=== PATIENT | male | born 1945 | race Caucasian/White ===

== ENCOUNTER → 2017-09-22 08:46 | Outpatient (CLI) | payer OTHER, SELFPAY ==
--- NOTE | 2017-09-22 | DI.CT.S_ITS ---
PROCEDURE: CT ABDOMEN WO/W CON INDICATIONS: ADRENAL PROTOCOL FOR DISORDER OF GLAND TECHNIQUE: Noncontrast 3 mm thick sections acquired from the diaphragms to the iliac crests. After the administration of intravenous contrast, 3 mm thick venous-phase and 10-minute delayed images acquired from the diaphragms to the iliac crests. For radiation dose reduction, the following was used: automated exposure control, adjustment of mA and/or kV according to patient size. COMPARISON: [facility], CT, ABDOMEN/PELVIS WITH CONTRAST, 08/29/2008, 13:44. [facility], MR, L-SPINE W&WO CONTRAST, 05/12/2014, 10:29. [facility], CT, IVP (ABD & PEL WWO CONTRAST), 03/20/2017, 9:16. FINDINGS: Image quality: There is streak artifact from the patient's thoracolumbar fixation hardware. Lung bases: Lung bases are clear. Heart size is normal. Adrenal glands: There is a left adrenal nodule again seen, which measures 2.4 x 2 cm in greatest axial dimension. On precontrast imaging, this measures 7 Hounsfield units. On venous phase imaging, this measures 42 Hounsfield units. On the delayed imaging, the internal density is also 42 Hounsfield units. No right adrenal nodules are seen. Solid organs: Liver is normal in size and enhancement. Subcentimeter presumed cysts are seen within the liver. Gallbladder demonstrates at least one gallstone. Biliary system is non dilated. Pancreas enhances normally. Spleen is normal in size and enhancement. Kidneys are normal in size and enhancement. No hydronephrosis. Bilateral nonobstructing kidney stones are seen. The largest stone on the right measures 6 mm and the largest stone on the left measures 3 mm. There is a nonenhancing water density cyst seen at the posterior aspect of the right kidney inferiorly that measures 3 cm. Peritoneum and bowel: Unenhanced bowel loops are normal in caliber and wall thickness. No free fluid or air. Nodes and vessels: No retroperitoneal or mesenteric adenopathy by size criteria. However, borderline prominent retroperitoneal lymph nodes can be seen. Aorta and inferior vena cava are normal in size. Miscellaneous: No ventral hernias. Bones: No suspicious bony lesions. There is a mild chronic appearing anterior wedge deformity of L4, with 25% loss of height anteriorly. No acute vertebral body compression fractures. S-shaped scoliotic curvature is seen. Age-appropriate bony degenerative changes are seen. IMPRESSION: There is a 2.4 cm left adrenal nodule seen, which is attributed to benign, lipid rich adrenal adenoma based upon its precontrast density. (However, no significant washout of contrast from this lesion is observed. Density measurements are somewhat limited, secondary to streak artifact from adjacent metallic spinal fixation hardware.) No further evaluation is recommended. Incidental note is made of: At least one gallstone Subcentimeter presumed liver cysts Thoracolumbar spine fixation hardware 3 cm simple right renal cyst Nonobstructing kidney stones Chronic L4 anterior wedge deformity Dictated by: Chente Mcdermott M.D. on 09/22/2017 at 8:48 Approved by: Chente Mcdermott M.D. on 09/22/2017 at 8:59
== END ==
PROVIDERS: Family Provider Family Medicine; PCP Family Medicine; Visit Provider Internal Medicine Endocrinology, Diabetes & Metabolism
DX: E27.8 Other specified disorders of adrenal gland (principal); K80.20 Calculus of gallbladder without cholecystitis without obstruction; N28.1 Cyst of kidney, acquired; N20.0 Calculus of kidney
CPT/HCPCS: 74170; Q9967

== ENCOUNTER → 2017-11-30 14:26 | Outpatient (CLI) | payer OTHER, SELFPAY ==
--- NOTE | 2017-11-30 | DI.RAD.S_ITS ---
PROCEDURE: XR ABDOMEN 1V INDICATIONS: KIDNEY STONE TECHNIQUE: One view of the abdomen acquired. COMPARISON: [facility], CT, CT ABDOMEN WO/W CON, 09/22/2017, 8:50. FINDINGS: Surgical changes and devices: None. Bowel: Bowel gas pattern is normal. Large amount of stool in colon. Soft tissues: Bilateral renal calculi seen on the comparison CT are not well-seen on this KUB. Renal contours are obscured by overlying stool in colon. Visualized solid organ contours appear normal in size. Calcific densities in pelvis are consistent with pelvic phleboliths. Bones: No suspicious bony lesions. Postsurgical changes with spinal fusion at T12-L2. IMPRESSION: 1. Renal contours are obscured by overlying stool in colon. Renal stones seen on CT are not well-seen. 2. Large amount of stool in colon. Dictated by: Dejuan Harrison M.D. on 11/30/2017 at 15:44 Approved by: Dejuan Harrison M.D. on 11/30/2017 at 15:47
== END ==
PROVIDERS: Visit Provider Urology
DX: N20.0 Calculus of kidney (principal)
CPT/HCPCS: 74018

== ENCOUNTER → 2018-05-04 07:58 | Outpatient (CLI) | payer OTHER, SELFPAY ==
[2018-05-04 08:56] LABS: Add Manual Diff / Slide Review NO; Basophils Percent Auto 0.7 % (0-2); Eosinophils Percent Auto 6.7 % (2-4); Hematocrit 42.7 % (41-53); Hemoglobin 14.6 g/dL (13.5-17.5); Lymphocytes Percent Auto 33.2 % (25-40); Mean Corpuscular HGB Conc 34.3 % (30-36); Mean Corpuscular Hemoglobin 32.7 PG (26-34); Mean Corpuscular Volume 95.3 fL (80-100); Monocytes Percent Auto 14.5 % (3-14); Neutrophils Absolute Auto 1300 /uL (1500-7000); Neutrophils Percent Auto 44.9 % (50-75); Platelet Count 157 X10^3/uL (150-400); Red Blood Cell Count 4.48 X10^6/uL (4.5-5.9); Red Cell Distribution Width 15.3 % (11.6-14.8); White Blood Cell Count 2.8 X10^3/uL (4.5-11.0)
[2018-05-04 09:25] LABS: Alanine Aminotransferase 29 IU/L (21-72); Albumin 4.4 g/dL (3.5-5.0); Albumin Globulin Ratio 1.6 (1.0-2.8); Alkaline Phosphatase 44 U/L (38-126); Aspartate Aminotransferase 32 IU/L (17-59); Bilirubin Total 0.7 mg/dL (0.2-1.3); Blood Urea Nitrogen 22 mg/dL (9-20); Calcium 9.6 mg/dL (8.4-10.2); Carbon Dioxide 27 mmol/L (22-32); Chloride 104 mmol/L (98-107); Cholesterol 173 mg/dL (140-199); Estimated Glomerular Filt Rate > 60.0 mL/min (>60); Globulin 2.7 g/dL (1.7-4.1); Glucose 93 mg/dL (80-110); HDL Cholesterol 46 mg/dL (40-60); HEMOLYSIS < 15 (0-50); LDL Cholesterol Calculated 111 mg/dL (<100); Potassium 4.5 mmol/L (3.4-5.1); Sodium 143 mmol/L (137-145); Total Protein 7.1 g/dL (6.3-8.2); Triglycerides 80 mg/dL (35-150)
[2018-05-04 09:40] LABS: Vitamin D 25 Hydroxy (D3) 62.4 ng/mL (30.0-100.0)
[2018-05-04 09:53] LABS: Prostate Specific Antigen Scrn 6.07 ng/mL (0.1-4.0)
== END ==
PROVIDERS: PCP Student in an Organized Health Care Education/Training Program; Visit Provider Student in an Organized Health Care Education/Training Program
DX: D69.6 Thrombocytopenia, unspecified (principal); E55.9 Vitamin D deficiency, unspecified; Z13.220 Encounter for screening for lipoid disorders; N40.0 Benign prostatic hyperplasia without lower urinary tract symptoms; M54.17 Radiculopathy, lumbosacral region; Z12.5 Encounter for screening for malignant neoplasm of prostate
CPT/HCPCS: 36415; 80053; 80061; 82306; 85025; G0103

== ENCOUNTER 2018-06-06 15:29 | Outpatient (CLI) | payer OTHER, SELFPAY ==
[2018-06-06] VITALS (8 sets, daily range): BP systolic 113–161; BP diastolic 72–97; PULSE 48–72; RESP 16; TEMP 35.9; O2SAT 98–100
--- NOTE | 2018-06-06 15:31 | DI.RAD.S_ITS ---
PROCEDURE: PAIN L/S TRANSFORAMINAL INJECT INDICATIONS: SPINAL STENOSIS FINDINGS: Fluoroscopic spot filming was performed to verify placement of spinal needles at the L4-L5 level(s), as labeled on the films. Appropriate location(s) of the needle tip(s) was confirmed by injection of iodinated contrast. L5 compression fracture incidentally noted Dictated by: Ramakrishna Duarte M.D. on 06/06/2018 at 16:57 Approved by: Ramakrishna Duarte M.D. on 06/06/2018 at 16:58
[2018-06-06] MEDS: MIDAZOLAM 5 MG/5 ML VIAL IV (16:05)
[2018-06-06] MEDS: IOPAMIDOL 15 ML VIAL 3 ML INJ (16:09)
[2018-06-06] MEDS: BUPIVACAINE 0.25% (PF) VIAL 2 ML INJ (16:09)
[2018-06-06] MEDS: methylPREDNISolone acetate 80 MG/ML VIAL INJ (16:09)
[2018-06-06] MEDS: DEXAMETHASONE 10 MG/ML VIAL 20 MG INJ (16:09)
--- NOTE | 2018-06-06 16:13 | PC.NURSE ---
assisting pt off table and transporting to post proc area by wc in stable condition
--- NOTE | 2018-06-06 16:24 | P.PCN_ITS ---
Procedures Date/Time Date of procedure: 06/06/18 Time of procedure: 16:23 General Procedure description: PREOP DIAGNOSIS 1. FORMAINAL STENOSIS WITH LE SYMPTOMS POST OP DIAGNOSIS 1. FORMAINAL STENOSIS WITH LE SYMPTOMS PROCEDURES 1. FLUOROSCOPICALLY GUIDED CONTRAST CONTROLLED TRANSFORAMINAL EPIDURAL STEROID INJECTION - RIGHT L4/5 TFESI PHYSICIAN: Harrison Nieves DO INDICATIONS: Germain is referred by Dr. Carrillo for treatment of Foraminal Stenosis with Right LE Symptoms FINDINGS Foraminal Nerve Root Compression secondary to disc disease and facet hypertrophy DESCRIPTION OF PROCEDURE: Following denial of allergy and review of potential side effects and complications, including, but not necessarily limited to, infection, allergic reaction, local tissue breakdown, stroke, temporary or permanent nerve injury, paralysis, and possible , the patient indicated that the patient understood and agreed to proceed. An informed consent document was signed by the patient, witnessed by a nurse, and placed in the patient's chart. Additionally, other treatment options including medications, modalities, and physical therapy were reviewed with the patient. After review of previous anaesthesic history and IV conscious sedation the patient was deemed safe to proceed with todays procedure with IV conscious sedation as ASA class II designation. Safety time-out was performed to confirm patient ID, procedure to be performed and site of procedure. IV sedation was accomplished with a combination of 3mg of Versed was administered by the RN after DO order, titrated to patient comfort during the course of the procedure while the patient remained responsive to all verbal commands In the prone position following sterile prep and drape of the lumbar region, the Right L4/5 posterior neuroforamen was identified fluoroscopically. The skin was anesthetized via a 25-gauge 1.5-inch needle with 1% lidocaine solution. At this point, a 25-gauge 3.5-inch spinal needle was atraumatically introduced and advanced under fluoroscopic guidance through the posterior Right L4/5 neuroforamen to approximately the anterior aspect of the canal. Depth was confirmed on lateral view. Following negative aspiration, injection of approximately 1.5 cc of Isovue 200 under live fluoroscopy in the AP view confirmed excellent flow along the nerve root, into the epidural space without vascular or intrathecal uptake observed Radiological data, including multiple fluoroscopic views of the lumbosacral spine, reveal a spinal needle at the right L4/5 posterior neuroforamen. Subsequent views show flow of contrast material flowing superiorly and inferiorly along the nerve root confirming epidural flow. Subsequently, a test dose of 1.5 cc of 1% lidocaine solution was administered and patient was observed for two minutes for signs or symptoms of complications , including abdominal pain, shortness of breath, bilateral upper or lower extremity weakness, nausea and vomiting, prior to steroid injection. At this point, a total of 3 cc or 20 mg of dexamethasone and 80mg Depo Medrol was injected without incident. The procedure tolerated the procedure well without signs or symptoms of complications prior to transfer to the recovery area continued monitoring without incident.The patient was then transferred to the recovery area where they were observed for an appropriate time after the injection. The patient reported a VAS score of 7 prior to the procedure and a post- procedure VAS of 0. Total Fluoroscopy Time: 20.9 seconds Total Conscious Sedation Time: 24min POST OP INSTRUCTIONS The patient was provided a Pain Log to continue to record their response to the target-specific procedure prior to follow-up visit with their referring physician. Additionally, specific post-injection care instructions and a contact number to our office were provided if concerns arise regarding possible complications associated with the procedure are suspected. Harrison Nieves DO Complications: none
--- NOTE | 2018-06-06 16:32 | PC.NURSE ---
Pt finished procedure and returned via w/c unable to move right leg. Able to transfer to w/c with 2 person assist. Resumed monitoring from Liz IZQUIERDO.
--- NOTE | 2018-06-06 16:44 | PC.NURSE ---
pt ready to go home except his right leg still hasn't recovered yet. We'll wait a little longer.
== END 2018-06-06 17:10 ==
PROVIDERS: PCP Student in an Organized Health Care Education/Training Program; Visit Provider Physical Medicine & Rehabilitation
DX: M48.061 Spinal stenosis, lumbar region without neurogenic claudication (principal); M51.16 Intervertebral disc disorders with radiculopathy, lumbar region; M48.07 Spinal stenosis, lumbosacral region; M99.83 Other biomechanical lesions of lumbar region
CPT/HCPCS: 64483; 99152; J1040; J1100; J2250

== ENCOUNTER → 2018-07-05 13:02 | Outpatient (CLI) | payer OTHER, SELFPAY ==
--- NOTE | 2018-07-05 | DI.MRI.S_ITS ---
PROCEDURE: MR LUMBAR SPINE WO CON INDICATIONS: poliomyelitis CALCULUS OF KIDNEY TECHNIQUE: Noncontrast sagittal T1 spin echo and T2 fast echo, sagittal STIR, axial T1 and T2 fast spin echo through the lumbar spine. In cases with scoliosis, additional coronal T2 fast spin echo may be performed. COMPARISON: [facility], CT, CT ABDOMEN WO/W CON, 09/22/2017, 8:50. [facility], MR, L-SPINE W&WO CONTRAST, 05/12/2014, 10:29. FINDINGS: Image quality: Excellent. Alignment and Curvature: There is moderate levoscoliosis. normal bony alignment. There is posterior fusion at T12-L2. Bone Marrow: There are chronic compression fractures, moderate at L5 (~50% loss of vertebral body height) and mild at L4 (~20% loss of vertebral body height). No acute vertebral body compression fractures. Spinal Cord: Conus medullaris terminates at the L1 level. Visualized cord demonstrates normal signal and size. Paraspinous Soft Tissues: No paravertebral masses. There is a 3 cm cyst in the right kidney. L1-L2: Surgically fused. No central canal stenosis or foraminal stenosis. L2-L3: Preserved disc height. Mild disc desiccation. There is mild posterior disc bulge. Mild bilateral facet arthropathy and hypertrophy of ligamentum flavum. The central canal is mildly narrowed. Moderate left and mild right foraminal stenosis. No significant change from the last exam. L3-L4: Tnyz-ls-[id number] loss of disc height and disc desiccation. There is diffuse posterior disc bulge and disc osteophyte complex. Moderate bilateral facet arthropathy and hypertrophy of ligamentum flavum. The central canal is mildly narrowed. Moderate left and mild right foraminal stenosis. No significant change from the last exam. L4-L5: Gjcb-su-zbcrzxse loss of disc height and disc desiccation. There is diffuse posterior disc bulge and disc osteophyte complex. Moderate right and mild left facet arthropathy. The central canal is mildly narrowed. Severe right and moderate left foraminal stenosis. No significant change from the last exam. L5-S1: Preserved disc height and mild disc desiccation. There is mild posterior disc bulge and disc osteophyte complex. Mild bilateral facet arthropathy. The central canal is patent. Moderate right and mild left foraminal stenosis. No significant change from the last exam. There is a 1.5 cm Tarlov cyst in sacrum just above S2-S3. IMPRESSION: 1. Multilevel degenerative disc disease and facet arthropathy as described. 2. Mild central canal stenosis at L2-L3, L3-L4 and L4-L5. 3. Multilevel foraminal stenosis as described. 4. Chronic compression fractures, moderate at L5 and mild at L4. 5. Postsurgical changes with spinal fusion at T12-L2. 6. Scoliosis. 7. 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 Dictated by: Dejuan Harrison M.D. on 07/05/2018 at 16:06 Approved by: Dejuan Harrison M.D. on 07/05/2018 at 16:37
--- NOTE | 2018-07-05 12:35 | DI.CT.S_ITS ---
PROCEDURE: CT KIDNEY URETER BLADDER (KUB) INDICATIONS: adernal nodule, hematuria, nephrolithiasis TECHNIQUE: Noncontrast 5 mm thick sections acquired from the diaphragms to the symphysis. 5 mm thick coronal and sagittal reformats were then performed. For radiation dose reduction, the following was used: automated exposure control, adjustment of mA and/or kV according to patient size. COMPARISON: [facility], CT, CT ABDOMEN WO/W CON, 09/22/2017, 8:50. FINDINGS: Image quality: Excellent. Lung bases: Lung bases are clear. Heart size is normal. Urinary system: Solitary left renal calculus measuring 2 mm in the inferior pole. There are a pair of right renal calculi measuring 4 mm also in the inferior pole. Simple appearing right renal cysts. No hydronephrosis. The ureters appear nondilated. There is chronic perinephric stranding, with unchanged appearance. Mild circumferential smooth bladder wall thickening. There is enlargement of the prostate. No bladder calculus seen. Bilateral pelvic phleboliths noted Other solid organs: Nonspecific subcentimeter hypodensity in the dome of the liver, too small to characterize however unchanged.. Gallbladder contains grossly unchanged appearance of at least one gallstone. There may also be gallbladder sludge. This could be further characterized with dedicated ultrasound as clinically warranted. No definite interval change since 09/22/17. Pancreas is normal in contours. Spleen is normal in size. Left adrenal nodule again noted measuring 2.0 cm and attenuation of 8 Hounsfield units suggestive of adenoma. As Peritoneum and bowel: Unenhanced bowel loops demonstrate normal wall thickness and caliber. No free fluid or air. The appendix is within normal limits Rectum is grossly unremarkable Nodes and vessels: No retroperitoneal or mesenteric adenopathy by size criteria. Aorta and inferior vena cava are normal in caliber. Abdominal wall: No ventral hernias. Pelvis: No free pelvic fluid. No inguinal hernias or adenopathy. Bones: No suspicious bony lesions. Lumbar spinal instrumentation and diffuse spondylosis. L5 compression fracture, as before. Age indeterminate anterior wedging of lower thoracic vertebral bodies. IMPRESSION: Overall, grossly unchanged examination since 09/22/17. Presumed left adrenal adenoma. Stable appearance. Cholelithiasis and possibly gallbladder sludge. This could be further characterized with ultrasound as clinically necessary, no interval change. Nonobstructive bilateral nephrolithiasis. Mild circumferential bladder wall thickening, technically age indeterminate. Recommend correlation with urinalysis. Enlarged prostate. Dictated by: Ramakrishna Duarte M.D. on 07/05/2018 at 16:00 Approved by: Ramakrishna Duarte M.D. on 07/05/2018 at 16:42
== END ==
PROVIDERS: PCP Student in an Organized Health Care Education/Training Program; Referring Provider Physical Medicine & Rehabilitation; Visit Provider Student in an Organized Health Care Education/Training Program
DX: E27.9 Disorder of adrenal gland, unspecified (principal); N20.0 Calculus of kidney; R31.9 Hematuria, unspecified; N40.0 Benign prostatic hyperplasia without lower urinary tract symptoms; M51.36 Other intervertebral disc degeneration, lumbar region; M51.37 Other intervertebral disc degeneration, lumbosacral region; M48.061 Spinal stenosis, lumbar region without neurogenic claudication; M48.07 Spinal stenosis, lumbosacral region; M47.816 Spondylosis without myelopathy or radiculopathy, lumbar region; M47.817 Spondylosis without myelopathy or radiculopathy, lumbosacral region; M84.48XS Pathological fracture, other site, sequela; M41.9 Scoliosis, unspecified; M85.68 Other cyst of bone, other site; Z98.1 Arthrodesis status
CPT/HCPCS: 72148; 74176

== ENCOUNTER → 2019-12-10 09:03 | Outpatient (CLI) | payer MEDICARE, SELFPAY ==
[2019-12-10 09:43] LABS: BUN Creatinine Ratio 27.7 (6-22); Blood Urea Nitrogen 31 mg/dL (9-20); Estimated Glomerular Filt Rate > 60.0 mL/min (>60)
--- NOTE | 2019-12-10 09:59 | DI.CT.S_ITS ---
PROCEDURE: CT ABDOMEN WO/W CON INDICATIONS: Other specified disorders of adrenal gland TECHNIQUE: Noncontrast 3 mm thick sections acquired from the diaphragms to the iliac crests. After the administration of intravenous contrast, 3 mm thick venous-phase and 15-minute delayed images acquired from the diaphragms to the iliac crests. For radiation dose reduction, the following was used: automated exposure control, adjustment of mA and/or kV according to patient size. COMPARISON: [facility], CT, IVP (ABD & PEL WWO CONTRAST), 03/20/2017, 9:16. [facility], CT, CT ABDOMEN WO/W CON, 09/22/2017, 8:50. FINDINGS: Image quality: Excellent. Lung bases: Lung bases are clear. Heart size is normal. Adrenal glands: There is a 2.2 x 2.5 cm left adrenal mass which demonstrates CT density 4.9 HU on precontrast images. Compared to the last exam on 09/22/2017, there is no change in size. The mass has absolute washout of 30.4 % and relative washout of 25.7%. Solid organs: Small low-density nodules in the upper are most likely hepatic cysts. Liver is normal in size and enhancement. Gallbladder contains gallstones. Biliary system is non dilated. Pancreas enhances normally. Spleen is normal in size and enhancement. There are nonobstructing renal stones bilaterally. No hydronephrosis. Kidneys are normal in size and enhancement. A 3 cm simple appearing cyst is seen in the inferior pole of the right kidney. Peritoneum and bowel: Unenhanced bowel loops are normal in caliber and wall thickness. No free fluid or air. Nodes and vessels: No retroperitoneal or mesenteric adenopathy by size criteria. Aorta and inferior vena cava are normal in size. Miscellaneous: No ventral hernias. Bones: Postsurgical changes raise discectomy and posterior fusion in lumbar spine. No suspicious bony lesions. No vertebral body compression fractures. IMPRESSION: 1. A 2.2 x 2.5 cm nodule is again identified in the left adrenal. The nodule has precontrast CT density less than 10 HU, compatible with adrenal adenoma. It appears unchanged in size compared to the last CT on 09/22/2017. 2. Cholelithiasis. 3. Bilateral nonobstructing renal calculi. 4. Tiny hepatic hypodensities are most likely small hepatic cysts. 5. A 3 cm simple appearing right renal cyst. Dictated by: Dejuan Harrison M.D. on 12/10/2019 at 13:40 Approved by: Dejuan Harrison M.D. on 12/10/2019 at 18:25
== END ==
PROVIDERS: PCP Student in an Organized Health Care Education/Training Program; Referring Provider Student in an Organized Health Care Education/Training Program; Visit Provider Student in an Organized Health Care Education/Training Program
DX: E27.8 Other specified disorders of adrenal gland (principal); N40.0 Benign prostatic hyperplasia without lower urinary tract symptoms; R97.20 Elevated prostate specific antigen [PSA]; K80.20 Calculus of gallbladder without cholecystitis without obstruction; N20.0 Calculus of kidney; N28.1 Cyst of kidney, acquired
CPT/HCPCS: 36415; 74170; 82565; 84520; Q9967

== ENCOUNTER → 2020-04-10 13:21 | Outpatient (CLI) | payer MEDICARE, SELFPAY ==
[2020-04-10 15:09] LABS: Prostate Specific Antigen 4.98 ng/mL (0.10-4.00)
== END ==
PROVIDERS: PCP Student in an Organized Health Care Education/Training Program; Referring Provider Student in an Organized Health Care Education/Training Program; Visit Provider Student in an Organized Health Care Education/Training Program
DX: R97.20 Elevated prostate specific antigen [PSA] (principal); N40.1 Benign prostatic hyperplasia with lower urinary tract symptoms
CPT/HCPCS: 36415; 84153

== ENCOUNTER → 2020-06-05 09:56 | Outpatient (CLI) | payer MEDICARE, SELFPAY ==
[2020-06-05] MEDS: COVID-19 VACC(MODERNA-1)/PF 100 MCG/0.5 ML VIAL IM (09:59)
== END ==
PROVIDERS: PCP Student in an Organized Health Care Education/Training Program; Visit Provider Internal Medicine
DX: Z23 Encounter for immunization (principal)
CPT/HCPCS: 0011A; 91301

== ENCOUNTER → 2020-07-03 10:54 | Outpatient (CLI) | payer MEDICARE, SELFPAY ==
[2020-07-03] MEDS: COVID-19 VACC #2, MRNA(MOD) 100 MCG/0.5 ML VIAL IM (11:00)
== END ==
PROVIDERS: PCP Student in an Organized Health Care Education/Training Program; Visit Provider Internal Medicine
DX: Z23 Encounter for immunization (principal)
CPT/HCPCS: 0012A; 91301

== ENCOUNTER → 2020-09-03 15:53 | Outpatient (CLI) | payer MEDICARE, SELFPAY ==
[2020-09-03 16:24] LABS: Add Manual Diff / Slide Review NO; Basophils Absolute Auto 0 /uL (0-100); Basophils Percent Auto 0.5 % (0-2); Eosinophils Absolute Auto 200 /uL (0-450); Eosinophils Percent Auto 3.6 % (2-4); Hematocrit 38.8 % (41-53); Lymphocytes Absolute Auto 1100 /uL (1100-4500); Lymphocytes Percent Auto 22.1 % (25-40); Mean Corpuscular HGB Conc 33.4 % (30-36); Mean Corpuscular Hemoglobin 31.2 PG (26-34); Mean Corpuscular Volume 93.3 fL (80-100); Monocytes Absolute Auto 500 /uL (0-900); Monocytes Percent Auto 10.6 % (3-14); Neutrophils Absolute Auto 3000 /uL (1500-7000); Neutrophils Percent Auto 63.2 % (50-75); Platelet Count 174 X10^3/uL (150-400); Red Blood Cell Count 4.16 X10^6/uL (4.5-5.9); Red Cell Distribution Width 15.8 % (11.6-14.8); White Blood Cell Count 4.8 X10^3/uL (4.5-11.0)
[2020-09-03 16:39] LABS: BUN Creatinine Ratio 33.7 (6-22); Blood Urea Nitrogen 32 mg/dL (9-20); Calcium 9.6 mg/dL (8.4-10.2); Carbon Dioxide 25 mmol/L (22-32); Chloride 105 mmol/L (98-107); Estimated Glomerular Filt Rate > 60.0 mL/min (>60); Glucose 78 mg/dL (80-110); HEMOLYSIS < 15 (0-50); Potassium 4.6 mmol/L (3.4-5.1); Sodium 136 mmol/L (137-145)
[2020-09-03 17:07] LABS: Prostate Specific Antigen 4.77 ng/mL (0.10-4.00)
== END ==
PROVIDERS: PCP Student in an Organized Health Care Education/Training Program; Referring Provider Student in an Organized Health Care Education/Training Program; Visit Provider Student in an Organized Health Care Education/Training Program
DX: Z87.438 Personal history of other diseases of male genital organs (principal); D69.6 Thrombocytopenia, unspecified; Z79.1 Long term (current) use of non-steroidal anti-inflammatories (NSAID)
CPT/HCPCS: 36415; 80048; 84153; 85025

== ENCOUNTER → 2021-08-30 11:11 | Outpatient (CLI) | payer MEDICARE, SELFPAY ==
[2021-08-30 13:01] LABS: BUN Creatinine Ratio 22.7 (6-22); Blood Urea Nitrogen 27 mg/dL (9-20); Calcium 9.4 mg/dL (8.4-10.2); Carbon Dioxide 28 mmol/L (22-32); Chloride 105 mmol/L (98-107); Estimated Glomerular Filt Rate 59.8 mL/min (>60); Glucose 89 mg/dL (80-110); HEMOLYSIS < 15 (0-50); Sodium 140 mmol/L (137-145)
[2021-08-30 13:30] LABS: Prostate Specific Antigen Scrn 5.93 ng/mL (0.1-4.0)
== END ==
PROVIDERS: PCP Student in an Organized Health Care Education/Training Program; Referring Provider Student in an Organized Health Care Education/Training Program; Visit Provider Student in an Organized Health Care Education/Training Program
DX: Z12.5 Encounter for screening for malignant neoplasm of prostate (principal); R97.20 Elevated prostate specific antigen [PSA]; G43.909 Migraine, unspecified, not intractable, without status migrainosus; Z79.1 Long term (current) use of non-steroidal anti-inflammatories (NSAID)
CPT/HCPCS: 36415; 80048; G0103

== ENCOUNTER 2022-04-10 06:03 | Emergency (ER) | payer MEDICARE, SELFPAY ==
[2022-04-10] VITALS (7 sets, daily range): BP systolic 124–177; BP diastolic 62–81; PULSE 48–70; RESP 18; TEMP 36.2; O2SAT 95–98; BMI 28.0
--- NOTE | 2022-04-10 06:35 | ED.MALEGU ---
HPI - Male Genitourinary General Chief complaint: Urogenital-Male Stated complaint: unable to urinate Time Seen by Provider: 04/10/22 06:16 Source: patient Mode of arrival: Ambulatory History of Present Illness HPI Narrative: Patient is a 76-year-old male a history of BPH recently had his 2nd TURP 4 days ago. He had his catheter removed 2 days ago. He was given home self catheterization supplies if needed. Which she used yesterday however he was unable to urinate throughout the night was having severe spasms. No fevers chills. Not on any antiplatelet or anticoagulation. Denies any fever nausea or vomiting Related Data Home Medications Medication Instructions Recorded Confirmed cholecalciferol (vitamin D3) 50 2,000 unit PO QDAY ##0 07/11/12 11/24/21 mcg (2,000 unit) capsule (Vitamin D3) ascorbic acid (vitamin C) 500 mg 1,000 mg PO DAILY 05/04/18 11/24/21 tablet,extended release echinacea PO .PRN 05/04/18 11/24/21 lysine 500 mg tablet (L-Lysine) 500 mg PO DAILY 05/04/18 11/24/21 mecobalamin (vitamin B12) 1,000 1,000 mcg sublingual DAILY 05/04/18 11/24/21 mcg disintegrating tablet,sublingual Previous Rx's Medication Instructions Recorded epinephrine 0.3 mg/0.3 mL 0.3 mg (0.3 mL) IM SEE 08/21/20 injection, auto-injector INSTRUCTIONS ##1 nadolol 20 mg tablet (Corgard) 20 mg PO DAILY #90 tabs 08/30/21 clonazepam 1 mg tablet 1 mg PO BEDTIME #30 tabs 11/27/21 sumatriptan succinate 100 mg tablet 100 mg PO DAILY PRN migraine 01/17/22 headache #12 tabs cephalexin 500 mg capsule 500 mg PO BID 7 days #14 caps 04/10/22 Allergies Allergy/AdvReac Type Severity Reaction Status Date / Time hornet venom Allergy Severe Anaphylaxis Verified 04/10/22 06:13 venom-wasp protein Allergy Severe Anaphylaxis Verified 04/10/22 06:13 Review of Systems Review of Systems Narrative: GENERAL: Denies chills,fever HEENT: Denies throat pain RESPIRATORY: Denies dyspnea, cough, wheezing CARDIOVASCULAR: Denies chest pain, palpitations GASTROINTESTINAL: Denies nausea, vomiting : See HPI MUSCULOSKELETAL: Denies extremity pain, injury SKIN: No rash, no laceration, no pruritus NEUROLOGIC: Denies weakness, dizziness, headache, numbness 8 point review of systems is negative except for those stated above and HPI Patient History Medical History Alopecia (1989) Basal cell carcinoma (BCC) of right cheek (2005) Cervical spine disease (2001) Chronic back pain (2008) Chronic benign neutropenia Chronic headaches (1956) Compression fracture of L4 lumbar vertebra (2008) Compression fracture of L5 lumbar vertebra (2008) Depression Dislocation of left shoulder joint (1999) Duodenal ulcer (1955) Fracture of L1 vertebra (2008) Herpes HPV (human papilloma virus) infection (1970) Leukopenia (2009) Lumbar spine pain (2008) Measles Migraines (2006) Mumps Carson-Schlatter's disease (1958) Osteoarthritis of right knee (2004) Periodic limb movements of sleep Polio Recurrent sinusitis (1963) RLS (restless legs syndrome) SCC (squamous cell carcinoma), scalp/neck (2003) Sinus infection Sleep apnea (2004) Staghorn kidney stones (1978) Thrombocytopenia (2011) Uncomplicated opioid dependence Surgical History Anesthesia History of basal cell carcinoma excision (2006) History of sinus surgery (1964) History of sinus surgery (1970) History of spinal fusion (2008) Status post colonoscopy (2001) Status post colonoscopy (2011) Family History Brother Age: 73 Obesity Gout Brother Age: 71 DJD (degenerative joint disease), cervical Child Age: 46 Crohn's disease Migraines Child Age: 43 Sinusitis Child Age: 41 Brain injury Grand mal seizure Father Alzheimer's disease Mother Metastatic breast cancer Social History Smoking Status: Never smoker Smoking Status: Never smoker alcohol intake frequency: 0-2 drinks per day Alcohol type: beer Substance Use Type: does not use Exam Initial Vital Signs Initial Vital Signs: Vital Signs Pulse Rate 70 04/10/22 06:08 GENERAL: Alert very pleasant 76-year-old male CARDIOVASCULAR: peripheral pulses in tact, cap refill <2 sec RESPIRATORY: No respiratory distress, speaks in full sentences without difficulty ABDOMEN: Soft, nontender, no guarding or rebound : Malhotra catheter in place serosanguineous dark no clots EXTREMITIES: Normal range of motion, no clubbing or edema. Neurovascularly intact NEUROLOGICAL: Cranial nerves II through XII grossly intact. Normal gait and speech. SKIN: Warm, dry, no petechiae, no rashes or lesions. Course Orders Ordered: ED Orders 04/10/22 06:18 UA Complete [Urinalysis and Microscopic] Stat Vital Signs Vital signs: Vital Signs - 8 hr 04/10/22 06:13 Temperature 97.2 F L Pulse Rate 54 L Respiratory Rate 18 Blood Pressure 177/81 H Pulse Oximetry 98 Oxygen Delivery Method Room Air MDM - Male Genitourinary Lab Data Labs: Lab Results 04/10/22 Range/Units 06:18 Urine Color Reddish brown Urine Appearance Cloudy Urine pH 7.0 (4.5-8.0) Ur Specific [place] 1.015 (1.000-1.035) Urine Protein 3+ H (Negative) Urine Glucose (UA) Negative (Negative) g/dL Urine Ketones Not Reportable Urine Occult Blood 3+ H (Negative) Urine Nitrate Not Reportable Urine Bilirubin Negative (NEGATIVE) Urine Urobilinogen 1.0 (0.2) E.U./dL Ur Leukocyte Esterase 1+ H (NEGATIVE) Urine RBC >100/hpf H (0-5/HPF) Urine WBC 1-5/hpf (0-5/HPF) Urine Bacteria Few (2-10) H (None) Ur Culture Indicated? Specimen cultured Micro UA Comment * [facility] Narrative Medical decision making narrative: Patient had Malhotra catheter placed. He does have UTI will treat him with Keflex. He has close follow-up with his urologist. This time no need for any blood work or any further interventions. Discharge Plan Departure Patient Disposition: Home Clinical Impression: Acute urinary retention Instructions: DI for Urinary Retention in Men Activity Restrictions/Additional Instructions: *You have been diagnosed with urinary retention *What to do: Keep catheter in *Continue to take medications as directed Keflex 500 mg twice a day for 7 days--> SENT TO [facility] *Follow up with your primary care provider in 2-3 days or call [phone] Follow-up with your urologist *Return to ER if you should have Malhotra catheter issues fever chills or any new, worsening or concerning symptoms Prescriptions: New cephalexin 500 mg capsule 500 mg PO BID 7 Days Qty: 14 0RF No Action cholecalciferol (vitamin D3) [Vitamin D3] 2,000 UNIT capsule 2,000 unit PO QDAY Qty: 0 epinephrine 0.3 mg/0.3 mL auto-injector 0.3 mg IM SEE INSTRUCTIONS Qty: 1 5RF Rx Instructions: Use as directed in pkg insert for allergic reaction clonazepam 1 mg tablet 1 mg PO BEDTIME Qty: 30 2RF sumatriptan succinate 100 mg tablet 100 mg PO DAILY PRN (Reason: migraine headache) Qty: 12 11RF Rx Instructions: Take one tab by mouth once daily at onset of headache as needed. nadolol [Corgard] 20 mg tablet 20 mg PO DAILY Qty: 90 3RF ascorbic acid (vitamin C) 500 mg tablet extended release 1,000 mg PO DAILY mecobalamin (vitamin B12) 1,000 mcg tablet,disintegrating 1,000 mcg SL DAILY lysine [L-Lysine] 500 mg tablet 500 mg PO DAILY echinacea PO .PRN Referrals: Junaid Carrillo MD [Primary Care Provider] - Visit Report Forms: Patient Portal/API
[2022-04-10 06:48] LABS: Appearance Urine UA CLOUDY; Leukocyte Esterase Urine UA 1+ (NEGATIVE); Occult Blood Urine UA 3+ (Negative); Protein Urine UA 3+ (Negative); Specific Gravity Urine UA 1.015 (1.000-1.035)
[2022-04-10 06:52] LABS: Color Urine UA REDDISH BROWN; Glucose Urine UA NEGATIVE (Negative)
[2022-04-10 06:53] LABS: Bilirubin Urine UA Negative (NEGATIVE)
[2022-04-10 07:08] LABS: Bacteria Urine Few (2-10); Culture Indicated Urine Specimen Cultured; RBC Urine >100/HPF (0-5/HPF); WBC Urine 1-5/HPF (0-5/HPF)
--- NOTE | 2022-04-10 07:47 | PC.NURSE ---
leg bag applied and pt sent home with large drainage collection bag. pt tolerated well and educated on use. AXEL.
== END 2022-04-10 07:48 | disposition home or self-care (01) ==
PROVIDERS: Emergency Provider Emergency Medicine; PCP Student in an Organized Health Care Education/Training Program
DX: R33.8 Other retention of urine (principal)
CPT/HCPCS: 51798; 81001; 87086; 99283

== ENCOUNTER → 2022-04-27 15:52 | Outpatient (CLI) | payer MEDICARE, SELFPAY ==
[2022-04-27 18:45] LABS: Influenza A - CEPHEID Flu A NEGATIVE (NEGATIVE); Influenza B - CEPHEID Flu B NEGATIVE (NEGATIVE); Respiratory Syncytial Virus Negative (Negative)
[2022-04-27 18:46] LABS: COVID-19 CEPHEID 4-PLEX PCR Negative (Negative)
== END ==
PROVIDERS: PCP Student in an Organized Health Care Education/Training Program; Visit Provider Physician Assistant
DX: R05.1 Acute cough (principal)
CPT/HCPCS: 0241U

== ENCOUNTER → 2022-05-09 16:29 | Outpatient (ROUT) | payer MEDICARE, SELFPAY ==
[2022-05-11 10:43] LABS: Fecal Immunochemical Test Negative (Negative)
== END ==
PROVIDERS: PCP Student in an Organized Health Care Education/Training Program; Visit Provider Student in an Organized Health Care Education/Training Program
DX: Z12.11 Encounter for screening for malignant neoplasm of colon (principal)
CPT/HCPCS: 82274

== ENCOUNTER → 2022-11-18 07:10 | Outpatient (CLI) | payer MEDICARE, OTHER, SELFPAY ==
[2022-11-18 08:00] LABS: Hematocrit 40.9 % (41-53); Hemoglobin 13.9 g/dL (13.5-17.5); Mean Corpuscular HGB Conc 34.1 % (30-36); Mean Corpuscular Hemoglobin 31.8 PG (26-34); Mean Corpuscular Volume 93.2 fL (80-100); Platelet Count 158 X10^3/uL (150-400); Red Blood Cell Count 4.39 X10^6/uL (4.5-5.9); Red Cell Distribution Width 16.1 % (11.6-14.8); White Blood Cell Count 3.2 X10^3/uL (4.5-11.0)
[2022-11-18 08:27] LABS: Alanine Aminotransferase 29 IU/L (<50); Albumin 3.9 g/dL (3.5-5.0); Albumin Globulin Ratio 1.7 (1.0-2.8); Alkaline Phosphatase 52 U/L (38-126); Aspartate Aminotransferase 31 IU/L (17-59); BUN Creatinine Ratio 19.4 (6-22); Bilirubin Total 0.7 mg/dL (0.2-1.3); Blood Urea Nitrogen 20 mg/dL (9-20); Calcium 9.2 mg/dL (8.4-10.2); Carbon Dioxide 27 mmol/L (22-32); Chloride 106 mmol/L (98-107); Cholesterol 158 mg/dL (140-199); Estimated Glomerular Filt Rate > 60 mL/min (>60); Globulin 2.3 g/dL (1.7-4.1); Glucose 96 mg/dL (80-110); HDL Cholesterol 43 mg/dL (40-60); HEMOLYSIS < 15 (0-50); LDL Cholesterol Calculated 101 mg/dL (<100); Potassium 4.5 mmol/L (3.4-5.1); Sodium 137 mmol/L (137-145); Total Protein 6.2 g/dL (6.3-8.2); Triglycerides 71 mg/dL (35-150)
[2022-11-18 08:56] LABS: Prostate Specific Antigen 3.63 ng/mL (0.10-4.00)
[2022-11-18 08:59] LABS: Thyroid Stimulating Hormone 3.21 uIU/mL (0.47-4.68)
[2022-11-18 13:38] LABS: Appearance Urine UA CLEAR; Bilirubin Urine UA NEGATIVE (NEGATIVE); Color Urine UA YELLOW; Glucose Urine UA NEGATIVE (Negative); Ketones Urine UA NEGATIVE (NEGATIVE); Leukocyte Esterase Urine UA NEGATIVE (NEGATIVE); Nitrite Urine UA NEGATIVE (Negative); Occult Blood Urine UA NEGATIVE (Negative); Protein Urine UA NEGATIVE (Negative); Specific Gravity Urine UA 1.025 (1.000-1.035); Urobilinogen Urine UA 0.2 E.U./dL (0.2)
[2022-11-18 13:48] LABS: Bacteria Urine None Seen; Culture Indicated Urine Cult Not Indicated; RBC Urine None Seen (0-5/HPF); Squamous Epithelial Cell Urine None Seen (0-5/HPF); WBC Urine None Seen (0-5/HPF)
[2022-11-21 07:19] LABS: Interpretation Negative (Negative)
== END ==
PROVIDERS: PCP Pediatrics; Referring Provider Pediatrics; Visit Provider Pediatrics
DX: K21.9 Gastro-esophageal reflux disease without esophagitis (principal); E78.5 Hyperlipidemia, unspecified; D69.6 Thrombocytopenia, unspecified; D70.9 Neutropenia, unspecified; G25.81 Restless legs syndrome; Z12.5 Encounter for screening for malignant neoplasm of prostate; Z01.89 Encounter for other specified special examinations
CPT/HCPCS: 36415; 80053; 80061; 81001; 83013; 84153; 84443; 85027; G0103

== ENCOUNTER → 2022-11-21 11:49 | Outpatient (CLI) | payer MEDICARE, OTHER, SELFPAY ==
--- NOTE | 2022-11-21 11:50 | DI.RAD.S_ITS ---
PROCEDURE: XR HAND RT MIN 3V INDICATIONS: RIGHT HAND NUMBNESS TECHNIQUE: 3 views of the hand(s) acquired. COMPARISON: None. FINDINGS: Bones: No fractures or dislocations. Carpal bones are normally aligned. No suspicious bony lesions. Joint space narrowing with subchondral cysts and marginal osteophytes noted involving the distal interphalangeal joints, 2nd MCP joint and 1st CMC joint. Prominent subchondral cysts noted in the base of the 3rd middle phalanx Soft tissues: No suspicious soft tissue calcifications. IMPRESSION: Polyarticular arthritic changes Approved by: Ozzie Fam M.D. on 11/21/2022 at 17:51
== END ==
PROVIDERS: PCP Pediatrics; Referring Provider Anesthesiology; Visit Provider Anesthesiology
DX: M19.041 Primary osteoarthritis, right hand (principal); R20.0 Anesthesia of skin; G56.03 Carpal tunnel syndrome, bilateral upper limbs
CPT/HCPCS: 73130; 99214

== ENCOUNTER 2022-12-19 09:32 | Outpatient (RCR) | payer MEDICARE, OTHER, SELFPAY ==
--- NOTE | 2022-12-19 13:15 | OT.OP.EVAL ---
Visit Care Team Role Provider Type Everett Kuo MD Attending Provider Physician Family Provider Primary Care Provider Referring Provider Specialty: Internal Medicine Pediatrics Address: [address] [place] [address], [address] Phone: Fax: Email: [email or web address] Occupational Therapy Initial Evaluation OT Outpatient Adult Evaluation Start: 12/20/22 07:32 Freq: Status: Active Protocol: Document 12/19/22 13:15 AMS (Rec: 12/20/22 07:57 AMS [id number]) General Information - Adult Visit Number [id number] Plan of Care Dates 12/19/22 - 01/16/23 Insurance Information Medicare; 19 visits --> KX visit Visit Start Time 10:00 Visit Stop Time 10:30 Total Visit Minutes 30 Treatment Setting Outpatient Care Goals Roving Hand Goals 1. Juan will be modified independent with execution of home exercise program utilizing provided written and visual instructions from therapist. Assessment/Plan Treatment Assessment Juan is a 77 y.o. right hand dominant male referred to outpatient OT secondary to B CTS. 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 Medical History = DJD, migraine headaches, sleep apnea, TKR R. 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 Indication of 6 out of 10 on Pain Assessment Grid relative to volar surface of L hand and 7 out of 10 on Pain Assessment Grid relative to distal thumb, 2nd, 3rd digits of the R hand and 6 out of 10 relative to palm --> distal PIPJs of 2nd, 3rd, 4th, and distal to IPJ of 1st digit. (+ ) report of reproduction of symptoms w/ reverse Phalen's test. Utilization of bilateral wrist braces at night ( started wearing B braces approx a month ago) w/ rigid volar wrist component to support wrist ext. 0-70 degrees R active wrist ext vs 0-43 degrees L active wrist ext; 0-55 degrees R active wrist flex vs 0-45 degrees L active wrist flex; 0-15 degrees R active wrist RD vs 0 -15 degrees L active wrist RD; 0-30 degrees R active wrist UD vs 0-30 degrees L active wrist UD. Reportedly utilizes laptop on computer desk w/ adjustable computer chair; limits computer use and takes frequent breaks when utilizing the phone or his laptop. Has custom bike w/ custom T bar. Discussion re: nerve conduction studies w/ need to obtain a referral from PCP to confirm CTS and then seek out referral to UE event set up specialist to discuss less conservative measures of treatment. Instructed in passive wrist extension w/ hold of 20 to 30 sec w/ elbow ext and forearm supination; instructed via modification techniques w/ utilization of table and/or wall. Recommend additional outpatient OT appointments to follow-up re: conservative measures of treatment. Length of treatment (weeks) 4 Plan of Care Start Date 12/19/22 Plan of Care End Date 01/16/23 Treatment Frequency Once a Week Therapeutic Contents Active Range of Motion, Adaptive Equipment Education, Client Education,Functional Activities,Home Exercise Program,Joint Protection, Manual Therapy,Education,Self- Care,Stretching/Flexibility Activities,Therapeutic Activities,Therapeutic Exercises,Modalities Modalities As Needed,As Prescribed Additional Types of Modalities Heat/Ice/Contrast/US/Paraffin Comment Nerve Conduction Study
--- NOTE | 2023-01-10 08:00 | OT.OP.DC ---
Visit Care Team Role Provider Type Everett Kuo MD Attending Provider Physician Family Provider Primary Care Provider Referring Provider Address: [address] [place] [address], [address] Email: [email or web address] OT Outpatient OT Outpatient Adult Evaluation Start: 12/20/22 07:32 Freq: Status: Active Protocol: Document 12/19/22 13:15 AMS (Rec: 12/20/22 07:57 AMS [id number]) General Information - Adult Visit Information Visit Number [id number] Plan of Care Dates 12/19/22 - 01/16/23 Insurance Information Medicare; 19 visits --> KX 20th visit Session Time Visit Start Time 10:00 Visit Stop Time 10:30 Total Visit Minutes 30 Setting Treatment Setting Outpatient Care Goals Usp Goals Usp Goals 1Valerie Martinez will be modified independent with execution of home exercise program utilizing provided written and visual instructions from therapist. Assessment/Plan Assessment Treatment Assessment Juan is a 77 y.o. right hand dominant male referred to outpatient OT secondary to B CTS. 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 Medical History = DJD, migraine headaches, sleep apnea, TKR R. 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 Indication of 6 out of 10 on Pain Assessment Grid relative to volar surface of L hand and 7 out of 10 on Pain Assessment Grid relative to distal thumb, 2nd, 3rd digits of the R hand and 6 out of 10 relative to palm --> distal PIPJs of 2nd, 3rd, 4th, and distal to IPJ of 1st digit. (+ ) report of reproduction of symptoms w/ reverse Phalen's test. Utilization of bilateral wrist braces at night ( started wearing B braces approx a month ago) w/ rigid volar wrist component to support wrist ext. 0-70 degrees R active wrist ext vs 0-43 degrees L active wrist ext; 0-55 degrees R active wrist flex vs 0-45 degrees L active wrist flex; 0-15 degrees R active wrist RD vs 0 -15 degrees L active wrist RD; 0-30 degrees R active wrist UD vs 0-30 degrees L active wrist UD. Reportedly utilizes laptop on computer desk w/ adjustable computer chair; limits computer use and takes frequent breaks when utilizing the phone or his laptop. Has custom bike w/ custom T bar. Discussion re: nerve conduction studies w/ need to obtain a referral from PCP to confirm CTS and then seek out referral to UE division operations specialist to discuss less conservative measures of treatment. Instructed in passive wrist extension w/ hold of 20 to 30 sec w/ elbow ext and forearm supination; instructed via modification techniques w/ utilization of table and/or wall. Recommend additional outpatient OT appointments to follow-up re: conservative measures of treatment. Plan Length of treatment (weeks) 4 Plan of Care Start Date 12/19/22 Plan of Care End Date 01/16/23 Treatment Frequency Once a Week Therapeutic Contents Active Range of Motion, Adaptive Equipment Education, Client Education,Functional Activities,Home Exercise Program,Joint Protection, Manual Therapy,Education,Self- Care,Stretching/Flexibility Activities,Therapeutic Activities,Therapeutic Exercises,Modalities Modalities As Needed,As Prescribed Additional Types of Modalities Heat/Ice/Contrast/US/Paraffin Comment Nerve Conduction Study Functional Wrist/Hand Scan Hand Side Sensory Assessment Sensory Profile2 OT Outpatient Treatment Note - Adult Start: 12/20/22 07:32 Freq: Status: Active Protocol: Document 01/10/23 07:56 [facility] (Rec: 01/10/23 07:59 [facility] [id number]) OT Outpatient Adult Treatment Note Visit Information Plan of Care Dates 12/19/22 - 01/16/23 Setting Treatment Setting Outpatient Care Visit Type Note Type Discharge Summary General Information General Information Juan is a 77 y.o. right hand dominant male referred to outpatient OT secondary to B CTS. 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 Medical History = DJD, migraine headaches, sleep apnea, TKR R. - Subjective Observations Juan has not been seen in the outpatient setting for OT since date of initial evaluation; he has pursued nerve conduction study to confirm CTS. Given that POC expires 01/16/23 and therapist is out of the clinic until 01/26 recommend d/c from outpatient OT at this time. - Objective Usp Goals D/C ALL GOALS 01/10/23 1. Juan will be modified independent with execution of home exercise program utilizing provided written and visual instructions from therapist. - - Assessment Assessment of Improvement Juan has not been seen in the outpatient setting for OT since date of initial evaluation; he has pursued nerve conduction study to confirm CTS. Given that POC expires 01/16/23 and therapist is out of the clinic until 01/26 recommend d/c from outpatient OT at this time. - Plan Therapy Recommendations Discharge from Occupational Therapy
== END 2023-01-16 14:14 | disposition home or self-care (01) ==
LOC: OT 09:32
PROVIDERS: Family Provider Pediatrics; PCP Pediatrics; Referring Provider Pediatrics; Visit Provider Pediatrics
DX: G56.03 Carpal tunnel syndrome, bilateral upper limbs (principal); R20.0 Anesthesia of skin
CPT/HCPCS: 97165

== ENCOUNTER → 2023-01-05 08:10 | Outpatient (CLI) | payer MEDICARE, OTHER, SELFPAY | PROVIDERS: Absent Provider Pediatrics; Family Provider Pediatrics; PCP Pediatrics; Referring Provider Anesthesiology; Visit Provider Anesthesiology | DX: G56.03 Carpal tunnel syndrome, bilateral upper limbs (principal) | CPT/HCPCS: 95885; 95886; 95910 ==

== ENCOUNTER → 2024-01-04 10:46 | Outpatient (CLI) | payer MEDICARE, OTHER, SELFPAY ==
--- NOTE | 2024-01-04 10:49 | DI.RAD.S_ITS ---
PROCEDURE: XR LUMBAR SPINE 6V W BENDING INDICATIONS: back pain TECHNIQUE: 5 views of the lumbar spine acquired, including flexion and extension views. COMPARISON: None. FINDINGS: Bones: 5 nonrib-bearing vertebrae are present. Minimal dextroscoliosis in the upper lumbar spine. Postsurgical changes are present with posterior fusion utilizing surgical barb secured by pedicle screws at L4-5. Fusion is also noted with posterior rods and pedicle screws at T12 and L 2 with a spacer in the region of L1. No complications are noted. No evidence of a fracture in the surgical hardware. No lucencies are seen around the hardware to indicate loosening of the screws. Extensive arthropathy present in the mid and lower facet joints. Soft tissues: Overlying bowel gas pattern is normal. No suspicious soft tissue calcifications. Flexion/extension: There is decreased range of motion, with preserved alignment. IMPRESSION: Extensive postsurgical changes. Facet arthropathy in the mid and lower lumbar spine. Dictated by: Tray Vargas M.D. on 01/05/2024 at 14:48 Approved by: Tray Vargas M.D. on 01/05/2024 at 14:54
[2024-01-04 11:41] LABS: Aspartate Aminotransferase 35 IU/L (17-59); BUN Creatinine Ratio 19.6 (6-22); Blood Urea Nitrogen 21 mg/dL (9-20); Calcium 9.6 mg/dL (8.4-10.2); Carbon Dioxide 24 mmol/L (22-32); Chloride 107 mmol/L (98-107); Cholesterol 184 mg/dL (140-199); Estimated Glomerular Filt Rate > 60 mL/min (>60); Glucose 89 mg/dL (80-110); HDL Cholesterol 43 mg/dL (40-60); HEMOLYSIS < 15 (0-50); LDL Cholesterol Calculated 120 mg/dL (<100); Potassium 4.8 mmol/L (3.4-5.1); Sodium 139 mmol/L (137-145); Triglycerides 104 mg/dL (35-150)
[2024-01-04 12:11] LABS: Prostate Specific Antigen 3.97 ng/mL (0.10-4.00)
== END ==
LOC: RAD 10:48
PROVIDERS: Family Provider Pediatrics; PCP Internal Medicine; Referring Provider Internal Medicine; Visit Provider Internal Medicine
DX: M47.816 Spondylosis without myelopathy or radiculopathy, lumbar region (principal); M54.50 Low back pain, unspecified; E78.2 Mixed hyperlipidemia; N40.0 Benign prostatic hyperplasia without lower urinary tract symptoms; G89.29 Other chronic pain; Z98.1 Arthrodesis status
CPT/HCPCS: 36415; 72114; 80048; 80061; 84153; 84450

== ENCOUNTER → 2024-02-19 19:40 | Outpatient (CLI) | payer MEDICARE, OTHER, SELFPAY ==
--- NOTE | 2024-02-19 19:43 | DI.MRI.S_ITS ---
PROCEDURE: MR LUMBAR SPINE WO CON INDICATIONS: Right LS pain s/p fusion TECHNIQUE: Noncontrast sagittal T1 spin echo and T2 fast echo, sagittal STIR, and T2 fast spin echo through the lumbar spine. In cases with scoliosis, additional coronal T2 fast spin echo may be performed. COMPARISON: [facility], CR, XR LUMBAR SPINE 6V W BENDING, 01/04/2024, 11:26. FINDINGS: Image quality: Excellent. Alignment and Curvature: Posterior fusion is present at T12 and L2 with interbody hardware at L1. Posterior fusion is also present at L4-5. Bone Marrow: Marrow is of normal overall signal. No acute vertebral body compression fractures. Old L5 and to a lesser degree L4 compression deformity. Spinal Cord: Conus medullaris terminates at the L1 level. Visualized cord demonstrates normal signal and size. Paraspinous Soft Tissues: No paravertebral masses. T12-L1: No disc bulge, spinal stenosis or foraminal narrowing. No interval change. L1-L2: Surgically fused. No spinal stenosis or foraminal narrowing. No interval change. L2-L3: Disc bulge with moderate spinal stenosis, progressive. Moderate bilateral foraminal narrowing progressive compared to prior exam. Facet and ligamentum flavum hypertrophy are present. L3-L4: Mild disc bulge with moderate spinal stenosis progressive, moderate to severe left and moderate right foraminal narrowing, progressive. Facet and ligamentum flavum hypertrophy are present. L4-L5: Postsurgical changes are present. No spinal stenosis, improved. Severe right and moderate left foraminal narrowing relatively stable. Facet and ligamentum flavum hypertrophy are present. L5-S1: Mild disc bulge without spinal stenosis. Moderate left and severe right foraminal narrowing with facet and ligamentum flavum hypertrophy, progressive. IMPRESSION: Postsurgical and degenerative changes. Overall interval progression of spinal stenosis and foraminal narrowing as detailed. Dictated by: Kamilla Holder M.D. on 02/20/2024 at 15:06 Approved by: Kamilla Holder M.D. on 02/20/2024 at 15:22
== END ==
PROVIDERS: Family Provider Pediatrics; PCP Internal Medicine; Referring Provider Physical Medicine & Rehabilitation; Visit Provider Physical Medicine & Rehabilitation
DX: M47.26 Other spondylosis with radiculopathy, lumbar region (principal); M47.27 Other spondylosis with radiculopathy, lumbosacral region; M48.061 Spinal stenosis, lumbar region without neurogenic claudication; M48.07 Spinal stenosis, lumbosacral region; Z98.1 Arthrodesis status
CPT/HCPCS: 72148

== ENCOUNTER → 2024-04-02 10:56 | Outpatient (CLI) | payer MEDICARE, OTHER, SELFPAY ==
--- NOTE | 2024-04-02 11:00 | DI.US.S_ITS ---
PROCEDURE: US RENAL COMPLETE INDICATIONS: History of Nephrolithiasis TECHNIQUE: Real-time scanning was performed of the kidneys and bladder, with image documentation. COMPARISON: [facility], CT, CT ABDOMEN WO/W CON, 12/10/2019, 9:40. FINDINGS: Kidneys: Kidneys are normal in size. Right kidney measures 10.6 cm long; left kidney measures 11.6 cm long. Right renal cortical thickness is 2.0 cm; left renal cortical thickness is 1.1 cm. Renal cortical echotexture is normal. No hydronephrosis or nephrolithiasis. No suspicious solid mass lesions. Simple right renal cyst. Bladder: Pre-void bladder volume is 287 mL. Post-void residual is 28 mL. Pre-void images demonstrate no intraluminal masses or stones. On pre-void images, bilateral ureteral jets are noted with color Doppler interrogation. (Of note, ureteral jets may not be detectable in up to 25% of cases due to insufficient differences in specific gravity between ureteral and bladder urine). Miscellaneous: No free pelvic fluid. IMPRESSION: No visualized stones. Dictated by: Kamilla Holder M.D. on 04/02/2024 at 19:51 Approved by: Kamilla Holder M.D. on 04/02/2024 at 19:55
== END ==
PROVIDERS: Family Provider Pediatrics; PCP Internal Medicine; Referring Provider Physician Assistant; Visit Provider Physician Assistant
DX: Z87.442 Personal history of urinary calculi (principal); N28.1 Cyst of kidney, acquired
CPT/HCPCS: 76770